=== PATIENT | male | born 1965 | race African-American/Black ===

== ENCOUNTER 2022-03-01 08:42 | Emergency (ER) | payer SELFPAY ==
[~2022-03-01] VITALS: Wt 97.5 kg
[~2022-03-01 08:42] MED LIST: TRAMADOL HCL50 MG PO
[2022-03-01 09:01] VITALS: BP 130/92
[2022-03-01] MEDS ORDERED: PREDNISONE50 MG PO (11:58)
== END 2022-03-01 12:20 | disposition home or self-care (01) ==
LOC: ED 08:42
DX: S49.92XA Unspecified injury of left shoulder and upper arm, initial encounter (principal); X58.XXXA Exposure to other specified factors, initial encounter; Y93.89 Activity, other specified; Y92.89 Other specified places as the place of occurrence of the external cause; Y99.8 Other external cause status